=== PATIENT | male | born 1940 | race Caucasian/White ===

== ENCOUNTER → 2017-06-20 | Outpatient (CLI) | payer OTHER ==
[~2017-06-20] MED LIST: ACET-24 PO; ASPEC325 PO; ASPI81TA28 PO; FRRG PO; ULT50X PO
[2017-06-20 14:23] LABS: BASO % 0.4 %; BASO ABS # 0.02 K/uL (0-0.2); COMPLETE YES; HEMATOCRIT 43.2 % (42-52); IG% 0.2 %; LYMPH % 32.8 %; LYMPH ABS # 1.78 K/uL (1.2-3.4); MEAN CELL VOLUME 100.7 fL (80-100); MEAN CORPUSCULAR HEMOGLOBIN 32.9 pg (25-34); MEAN CORPUSCULAR HGB CONC 32.6 g/dl (32-36); MEAN PLATELET VOLUME 10.1 fL (7.4-10.4); MONO % 9.4 %; NEUT % 45.2 %; PLATELET COUNT 216 K/uL (130-400); RED BLOOD COUNT 4.29 M/uL (4.7-6.1); WHITE BLOOD COUNT 5.43 K/uL (4.8-10.8)
[2017-06-20 14:38] LABS: ALKALINE PHOSPHATASE 110 U/L (45-117); ALT/SGPT 20 U/L (12-78); AST/SGOT 17 U/L (15-37); BLOOD UREA NITROGEN 25 mg/dl (7-18); BUN/CREATININE RATIO 22.8 (10-20); CALCIUM 8.7 mg/dl (8.5-10.1); CARBON DIOXIDE 27 mmol/L (21-32); CHLORIDE 111 mmol/L (98-107); CHOLESTEROL 197 mg/dl (0-200); CHOLESTEROL/HDL RATIO 3.3; GLUCOSE 83 mg/dl (70-99); HDL CHOLESTEROL 59 mg/dl; LDL CHOLESTEROL CALCULATED 119 mg/dl; POTASSIUM 3.7 mmol/L (3.5-5.1); SODIUM 144 mmol/L (136-145); TRIGLYCERIDES 95 mg/dl (0-150); VERY LOW DENSITY LIPOPROT CALC 19 mg/dl
[2017-06-20 14:42] LABS: PROSTATE SPECIFIC ANTIGEN 0.975 ng/ml (0.000-4.000)
== END | disposition home or self-care (01) ==
LOC: C.LABSPEC 13:40
PROVIDERS: ATTEND Family Medicine
DX: Z00.00 Encounter for general adult medical examination without abnormal findings (principal); R60.0 Localized edema; Z12.5 Encounter for screening for malignant neoplasm of prostate

== ENCOUNTER 2017-07-29 05:03 | Inpatient (IN) | payer OTHER ==
[2017-07-07 09:35] VITALS: BMI 24.0
--- NOTE | 2017-07-07 10:09 | PAT Medication Instructions ---
Service Date Jul 07, 2017. Current Home Medication List Aspirin (Aspirin Ec), 81 MG PO QPM Medication Instructions For Your Scheduled Surgery - Take the following medications as scheduled the night before surgery: Aspirin (Aspirin Ec), 81 MG PO QPM (okay to continue per surgeon) If you have any questions please call us at [phone] or [phone] or [phone]
--- NOTE | 2017-07-07 11:01 | DIAGNOSTIC IMAGING REPORT ---
CHEST PREADMISSION(PA/LAT) CLINICAL HISTORY: 77 years-old Male presenting with preoperative assessment. TECHNIQUE: PA and lateral views of the chest were obtained. COMPARISON: None. FINDINGS: Cardiomediastinal silhouette normal. Lungs and pleural spaces clear. Degenerative changes of the thoracic spine. Upper abdomen normal. IMPRESSION: 1. No acute cardiopulmonary disease. Electronically signed by: Sony Ritter M.D. 07/07/2017 11:00 AM Dictated Date/Time: 07/07/2017 10:59 AM
[2017-07-07 15:13] LABS: PARTIAL THROMBOPLASTIN RATIO 1.1; PROTHROMBIN TIME (PATIENT) 11.2 SECONDS (9.0-12.0)
--- NOTE | 2017-07-23 21:58 | HISTORY & PHYSICAL EXAMINATION ---
DATE OF ADMISSION: 07/29/2017 CHIEF COMPLAINT: Right hip pain. HISTORY OF PRESENT ILLNESS: The patient is a 77-year-old gentleman from [place] who presents for treatment of his right hip. He has been an avid walker in the past but has developed increased hip pain and discomfort over the past several years. He has been less able to walk as a result. He did have an injection into his knee which did not help at all. He has been through pain management which did not seem to help either. He describes hip and buttock pain, groin pain, thigh pain. Once again, he used to walk 5 miles a day, but now cannot walk more than a mile at a time. He would like to get back to that. He would like to have his hip replaced. PAST MEDICAL HISTORY: Noncontributory. PAST SURGICAL HISTORY: 1. Appendectomy. 2. Cholecystectomy. ALLERGIES: None. CURRENT MEDICATIONS: Baby aspirin. SOCIAL HISTORY: A 77-year-old male patient from [place]. He is . His medical doctor is Dr. Sherwood. FAMILY HISTORY: Noncontributory. REVIEW OF SYSTEMS: Negative for diabetes, neurologic problems, vascular problems, bleeding disorders. Denies any chest pain. No shortness of breath. No history of DVT or PE. PHYSICAL EXAMINATION: GENERAL: Reveals a healthy pleasant elderly male. He looks younger than his stated age. HEENT: Benign. NECK: Supple. No lymphadenopathy. LUNGS: Clear to auscultation. HEART: Has a regular rate and rhythm. ABDOMEN: Soft, nontender, nondistended. EXTREMITIES: Grossly neurovascularly intact except as follows: Examination of the right hip and leg reveals patient walks with a limp. Leg lengths clinically appear pretty equal. He does have significant stiffness to his hip with pain, with any type of internal rotation. He can internally rotate to neutral. External rotation 25 degrees. Slight flexion contracture. No knee effusion. X-RAYS: X-rays of the right hip reviewed. It shows advanced right hip DJD. He has got complete loss of the superior joint space. He has got flattening of his femoral head and cystic change of both sides of the joint. ASSESSMENT: A 77-year-old very active gentleman with right hip and leg pain consistent with advanced hip arthritis. He undoubtedly has some lumbar spine disease as well, but I think his major limiting factor is his hip arthritis. PLAN: We talked about treatment options. He would like to have his hip replaced. We are going to take him to the operating room and do a right total hip replacement. The risks and benefits of this procedure were explained to patient including but not limited to DVT, PE, , infection, neurological injury, vascular injury, bleeding problem, pain, limited range of motion, stiffness, failure to relieve symptoms, incomplete relief of symptoms, need for further surgery in the future, fracture, leg length inequality, nerve palsy, dislocation, need for revision surgery, etc. The patient understands and desires to proceed. Informed consent was obtained. We talked about discharge and he is hoping to be discharged to a rehab facility for a brief rehab stay once he is medically stable in the hospital.
[~2017-07-29] VITALS: Ht 177.8 cm; Wt 76.4 kg
[2017-07-29] VITALS (24 sets, daily range): BP systolic 95–135; BP diastolic 58–76; PULSE 46–70; TEMP 36.3–37.4; O2SAT 91–100; Ht 177.8 cm; Wt 76.4 kg
[~2017-07-29 05:03] MED LIST changes: -ACET-24 PO; -ASPEC325 PO; -FRRG PO; -ULT50X PO
[2017-07-29] MEDS ORDERED: LACTATED RINGER'S 1000ML 1,000 ML IV SCH (06:00)
[2017-07-29] MEDS ORDERED: LACTATED RINGER'S 1000ML IV SCH (06:00)
[2017-07-29] MEDS ORDERED: TRANEXAMIC ACID INJ 1,000 MG in SODIUM CHLORIDE 0.9% 100ML 100 ML IV SCH (06:00)
[2017-07-29] MEDS ORDERED: SCOPOLAMINE 1.5 MG TDSY TD SCH (06:00)
[2017-07-29] MEDS ORDERED: METOCLOPRAMIDE HCL 10 MG TAB PO SCH (06:00)
[2017-07-29] MEDS ORDERED: FAMOTIDINE 20 MG TAB PO SCH (06:00)
[2017-07-29] MEDS ORDERED: ACETAMINOPHEN 500 MG TAB PO SCH (06:00)
[2017-07-29] MEDS ORDERED: LACTATED RINGER'S 1000ML 500 ML IV ONE (06:00)
[2017-07-29] MEDS ORDERED: GABAPENTIN 300 MG CAP PO SCH (06:00)
[2017-07-29] MEDS ORDERED: CEFAZOLIN 2000 MG/60 ML D5W 60 ML IV SCH (06:00)
[2017-07-29] MEDS ORDERED: BUPIVACAINE 0.5 % 5 MG/1 ML PF 10ML VIAL ONE (06:28)
[2017-07-29] MEDS ORDERED: MIDAZOLAM HCL 1 MG/ML 2ML VIAL ONE (06:38)
[2017-07-29] MEDS ORDERED: FENTANYL CITRATE INJ 50 MCG/1 ML 2 ML VIAL ONE (06:38)
[2017-07-29] MEDS ORDERED: MORPHINE SULFATE PF 2MG/2ML SYR ONE (06:39)
[2017-07-29] MEDS ORDERED: BACITRACIN 50000 UNIT VIAL ONE (06:43)
[2017-07-29] MEDS ORDERED: BUPIVACAINE/EPINEPHRINE 0.5% MPF 1:200,000 30 ML VIAL ONE (06:43)
--- NOTE | 2017-07-29 06:46 | History & Physical Bridge Note ---
H&P Re-Evaluation Bridge Note: I have examined the patient, reviewed the History & Physical and in the interval since the performance of the History & Physical I have noted the following changes of clinical significance: No changes noted
[2017-07-29] MEDS ORDERED: FENTANYL CITRATE INJ 50 MCG/1 ML 2 ML VIAL IV PRN (07:00)
[2017-07-29] MEDS ORDERED: ONDANSETRON INJ 2 MG/ML 2 ML VIAL IV PRN ×2 (07:00→07:15)
[2017-07-29] MEDS ORDERED: EpHEDrine SULFATE INJ 50 MG/ML AMP IV PRN ×2 (07:00→07:15)
[2017-07-29] MEDS ORDERED: ATROPINE SULFATE 0.1 MG/ML 5ML SYR IV PRN (07:00)
[2017-07-29] MEDS ORDERED: SODIUM CHLORIDE 0.9% 1000ML 1,000 ML IV PRN (07:02)
[2017-07-29] MEDS ORDERED: LACTATED RINGER'S 1000ML 500 ML IV PRN (07:02)
[2017-07-29] MEDS ORDERED: NALOXONE HCL INJ 1 MG in SODIUM CHLORIDE 0.9% 1000ML 1,000 ML IV PRN (07:02)
[2017-07-29] MEDS ORDERED: NALOXONE HCL INJ 0.08 MG in SYRINGE 1.8 ML IV PRN (07:02)
[2017-07-29] MEDS ORDERED: MEPERIDINE HCL 25 MG/ML CARP IV PRN (07:15)
[2017-07-29] MEDS ORDERED: NALOXONE HCL 0.4 MG/1 ML VIAL/CARP IV PRN (07:15)
[2017-07-29] MEDS ORDERED: NALBUPHINE HCL INJ 10 MG/ML AMP IV PRN (07:15)
[2017-07-29] MEDS ORDERED: NO NARCOTICS OR SEDATIVES SCH (07:15)
[2017-07-29] MEDS ORDERED: MoRPHine SULFATE 2 MG/ML CARP IV PRN (07:15)
[2017-07-29] MEDS ORDERED: MoRPHine SULFATE PF 1 MG/ML 10 ML AMP/VIAL EPI PRN (07:15)
[2017-07-29] MEDS ORDERED: PROPOFOL IV EMULSION 10 MG/ML 20 ML VIAL IV ONE (07:18)
[2017-07-29] MEDS ORDERED: ONDANSETRON INJ 2 MG/ML 2 ML VIAL ONE (07:18)
[2017-07-29] MEDS ORDERED: LIDOCAINE HCL 2% 2 ML VIAL (20MG/ML) ONE (07:18)
--- NOTE | 2017-07-29 08:38 | [facility] Post Operative Brief Note ---
Immediate Operative Summary Operative Date Jul 29, 2017. Pre-Operative Diagnosis Right Hip, Degenerative Joint Disease Post-Operative Diagnosis Same as preoperative Procedure(s) Performed Right Total Hip Arthroplasty, Uncemented Surgeon Dr. Barrett Orellana Motion Picture Narrator Surgeon(s) Abdon Madrigal PA-C Estimated Blood Loss 300ml Findings Right Hip DJD Fluids (cc crystalloids) 1200 cc Specimens A.) Right Femoral Head Drains NOne Anesthesia Spinal Complication(s) None Disposition Recovery Room / PACU
[2017-07-29] MEDS ORDERED: SILVER SULFADIAZINE 1% CR 50 GM JAR EXT PRN (08:45)
[2017-07-29] MEDS ORDERED: BISACODYL 10 MG SUPP PR PRN (08:45)
[2017-07-29] MEDS ORDERED: ALUMINUM/MAGNESIUM/SIMETH (MAALOX MAX) 30 ML UDC PO PRN (08:45)
[2017-07-29] MEDS ORDERED: MAGNESIUM HYDROXIDE SUSP 30 ML UDC PO PRN (08:45)
[2017-07-29] MEDS ORDERED: TAMSULOSIN HCL 0.4 MG CAP PO PRN (08:45)
--- NOTE | 2017-07-29 09:10 | DIAGNOSTIC IMAGING REPORT ---
R PELVIS/UNILATERAL HIP 1 VIEW CLINICAL HISTORY: 77 years-old Male presenting with postoperative hip replacement. TECHNIQUE: Single frontal view pelvis and crosstable lateral view of the right hip were obtained. COMPARISON: 05/14/2017. FINDINGS: There has been interval total right hip arthroplasty. Expected soft tissue and intra-articular emphysema. Overlying skin lily. No malalignment. No acute fracture. No hardware complication. Calcification in the soft tissues along the medial thighs, possibly within the musculature and unchanged from prior. IMPRESSION: Expected postoperative appearance status post right total hip arthroplasty. Electronically signed by: Sony Ritter M.D. 07/29/2017 9:08 AM Dictated Date/Time: 07/29/2017 9:07 AM
--- NOTE | 2017-07-29 09:10 | OPERATIVE REPORT ---
DATE OF OPERATION: 07/29/2017 SURGEON: Barrett Orellana MD. PROCESS LEAD: SABINO Sheth. PREOPERATIVE DIAGNOSIS: Right hip degenerative joint disease. POSTOPERATIVE DIAGNOSIS: Same. PROCEDURE PERFORMED: Right uncemented total hip arthroplasty. COMPLICATION: None. ESTIMATED BLOOD LOSS: 300 mL FLUID REPLACEMENT: 1200 mL crystalloid fluid replacement. ANESTHESIA: Spinal. DRAINS: None. SPECIMEN: Right femoral head sent for pathology. OPERATIVE INDICATIONS: The patient is a 77-year-old very active gentleman who has had a fairly long history of right leg pain and discomfort. He has been through extensive conservative care trying to manage knee problems as well as back problems. This has been all unsuccessful. X-rays show advanced hip arthritis. He failed conservative treatment and would like to proceed with operative intervention. OPERATIVE FINDINGS: Operative findings revealed advanced right hip DJD. He had extensive grade 4 changes of the femoral head and acetabulum. He had large osteophytes of the anterior aspect of the acetabulum as well as around the femoral neck. OPERATIVE IMPLANTS: Operative implants consisted of: 1. Biomet G7 size 58 mm acetabular shell. 2. A 6.5 cancellous acetabular screws, 1 at 35 mm length and 1 at 30 mm length. 3. An apex hole eliminator. 4. A Biomet highly cross-linked polyethylene liner with a 58 mm outer diameter, 36 mm inner diameter, with a rhoades placed inferior and posterior. 5. A DePuy size 16.5 large stature standard offset femoral stem. 6. A +5/36 mm metal articular ball. OPERATIVE PROCEDURE: The patient taken to the operating room, identified and placed on the operating table in supine position. All contact areas were appropriately padded. IV antibiotics provided by anesthesia team. A spinal anesthetic had been implemented in the holding area. Kruger catheter was placed in sterile fashion. The patient then placed in left lateral decubitus position. An axillary roll was placed. Stulberg hip positioner was used for positioning. The right hip and leg were then prepped and draped in usual sterile fashion. A posterolateral approach to the right hip was then performed through a curvilinear incision centered over the greater trochanter area. Sharp dissection was carried through the subcutaneous tissues down to the level of the IT band and gluteal fascia. The IT band and gluteal fascia were then incised longitudinally in line with skin incision. The underlying greater trochanteric bursa was excised. The piriformis and external rotators were then taken off the posterior aspect of the hip. Great care was taken throughout the procedure to protect the sciatic nerve at all times. Posterior capsulotomy was then performed, leaving a large flap for later repair. Hip was internally rotated and dislocated. Femoral neck osteotomy cut was made with the final cut 12 mm above the lesser trochanter. Femoral head was removed and sent for pathology. The femur was retracted anteriorly. Attention was then drawn to the acetabulum. The acetabular labrum was excised. The pulvinar fat was excised. Sequential reaming of the acetabulum was then performed beginning with size 51 and progressing up to a 57. A 58 mm Biomet G7 acetabular shell was then placed in about 40 degrees of lateral opening and 20 degrees of anteversion. It was fixed with two 6.5 cancellous acetabular screws. A trial liner was placed. Some anterior osteophytes removed. Attention then drawn to the femur. The proximal femur was entered with a cookie cutter, followed by a canal finder and lateralizing reamer. Sequential reaming of the femur was then performed beginning with a size 10 and progressing up to a 16. We started to get pretty good chatter at 16. I then broached beginning with a size 12 small and progressing up to 16.5 large. We got good metaphyseal fit. Calcar reamer was used to smoothen off the calcar. Hip was then trialed. The +5/36 mm articular ball provided full stability in full extension, external rotation, flexion to 90 degrees and internal rotation to 60 degrees. I did elect to place a rhoades on the liner very inferior and posterior to maximize his stability in flexion. Soft tissue tension seemed appropriate. We elected to use these implants. All trial implants were removed. An apex hole eliminator was placed. A highly cross-linked polyethylene liner with a rhoades placed inferior and posterior was placed. A DePuy 16.5 large stature standard offset femoral stem was then impacted in position. We got good fit. A +5/36 mm metal articular ball was placed. Hip was located and once again found to be stable. Attention was then drawn toward closing. The wound was irrigated with copious amounts of pulsatile lavage solution. I did inject locally with 60 mL of 0.5% Marcaine with epinephrine. Posterior capsule and external rotators were then repaired through drill holes in the posterior trochanter with #2 Ti-Cron suture. The IT band and gluteal fascia were then closed with #1 PDS suture in running fashion. The subcutaneous tissues were then closed in 2 layers with deep layer with #1 Vicryl suture and subcutaneous tissues with 2-0 Dexon suture in a buried interrupted fashion. Skin was closed with skin lily. Leg was then cleaned and dried, and a sterile dressing of Xeroform, 4 x 4's, ABD pad and foam tape was applied. The patient then transferred to the recovery room in stable condition. The patient tolerated the procedure well with no complications. All needle and sponge counts were correct at the end of the operation. I attest to the content of the Intraoperative Record and any orders documented therein. Any exception s are noted below.
--- NOTE | 2017-07-29 09:23 | Anesthesiology Progress Note ---
Anesthesia Post Op Note Date & Time Jul 29, 2017 at 09:23 Vital Signs Pain Intensity: 0 Vital Signs Past 12 Hours Date Time Temp Pulse Resp B/P (MAP) Pulse Ox O2 Delivery O2 Flow Rate FiO2 07/29/17 09:15 36.2 48 17 122/65 100 Nasal Cannula 2 07/29/17 09:05 48 12 117/63 100 Nasal Cannula 2 07/29/17 08:55 53 15 128/67 100 Nasal Cannula 2 07/29/17 08:45 55 15 122/66 100 Nasal Cannula 2 07/29/17 08:37 36.0 66 15 109/66 100 Nasal Cannula 2 07/29/17 05:45 36.4 48 18 122/73 98 Room Air Notes Mental Status: alert / awake / arousable, participated in evaluation Pt Amnestic to Procedure: Yes Nausea / Vomiting: adequately controlled Pain: adequately controlled Airway Patency, RR, SpO2: stable & adequate BP & HR: stable & adequate Hydration State: stable & adequate Neuraxial Anesthesia: was administered, sensory block is resolving Anesthetic Complications: no major complications apparent
[2017-07-29] MEDS: DiphenhydrAMINE HCL 50 MG/ML VIAL IV PRN ×2 (10:24→18:27)
[2017-07-29] MEDS: DOCUSATE SODIUM 100 MG CAP PO SCH ×2 (10:26→20:31)
[2017-07-29] MEDS: D5W AND 1/2NSS + 20MEQ KCL 1,000 ML IV SCH ×2 (10:26→20:26)
[2017-07-29] MEDS: PANTOprazole SOD 40 MG TAB PO SCH (10:27)
[2017-07-29] MEDS: MULTIVITAMIN TAB PO SCH (10:27)
[2017-07-29] MEDS: FERROUS GLUCONATE 324 MG TAB PO SCH ×2 (12:15→18:21)
[2017-07-29] MEDS: ACETAMINOPHEN 500 MG TAB PO SCH ×2 (14:08→21:37)
[2017-07-29] MEDS ORDERED: TRANEXAMIC ACID INJ 1,000 MG in SODIUM CHLORIDE 0.9% 100ML 100 ML IV ONE (14:30)
--- NOTE | 2017-07-29 15:38 | PROGRESS NOTE ---
DATE: 07/29/2017 DATE: 07/29/2017 SUBJECTIVE: A 77-year-old gentleman postop from a right total hip replacement. He is doing well. Not having any pain yet. No chest pain or shortness of breath. Not feeling dizzy or lightheaded. He has been a bit itchy. OBJECTIVE: VITAL SIGNS: Temperature 36.4. Vital signs stable. PHYSICAL EXAMINATION: GENERAL: Reveals a pleasant elderly male. He is sitting up in bed and talking to his family. Looks comfortable. LUNGS: Clear to auscultation. HEART: Regular rate and rhythm. ABDOMEN: Soft, nontender, nondistended. EXTREMITY EXAMINATION: Grossly neurovascularly intact except as follows: Examination of the right hip and leg reveals the dressing to be clean, dry and intact. Leg lengths were equal. Hip is located. He is neurologically intact. He can dorsiflex and plantarflex his foot appropriately. X-RAYS: X-rays of the right hip from recovery room were reviewed. It shows a right uncemented total hip arthroplasty. Components looked to be in good position. No signs of problems. ASSESSMENT: A 77-year-old gentleman postop from a right total hip replacement, doing pretty well. Pain is controlled. Hip is located. He is neurologically intact. PLAN: 1. DVT prophylaxis including thigh-high TEDs, SCDs, and aspirin twice a day. 2. PT/OT. Weight bear as tolerated. Right total hip protocol. 3. Pain control. Doing well with current pain regimen. Really not having any pain. 4. IV antibiotics x24 hours. 5. Disposition. He is hoping to be discharged to [facility] for a rehab stay once medically stable and recovered.
[2017-07-29] MEDS: CHECK SCOPOLAMINE PATCH PLACEMENT SCH ×2 (15:40→23:47)
[2017-07-29] MEDS: CEFAZOLIN IV 1,000 MG in DEXTROSE 5% 50ML 50 ML IV SCH ×2 (15:40→23:50)
[2017-07-29] MEDS: ASPIRIN 325 MG ECTAB PO SCH (20:31)
[2017-07-29] MEDS: SENNA 8.6 MG TAB PO SCH (20:31)
[2017-07-30 00:30] VITALS: PULSE 76; O2SAT 94; O2SAT 96
[2017-07-30] MEDS ORDERED: DC INTRASPINAL MORPHINE ONE (01:00)
[2017-07-30] MEDS ORDERED: HYDROmorphone INJ 0.5 MG/0.5 ML SYR IV PRN (01:01)
[2017-07-30] MEDS ORDERED: METOCLOPRAMIDE HCL INJ 5 MG/ML 2 ML VIAL IV PRN (01:01)
[2017-07-30] MEDS ORDERED: TRAMADOL HCL 50 MG TAB PO PRN (01:01)
[2017-07-30] MEDS ORDERED: ONDANSETRON INJ 2 MG/ML 2 ML VIAL IV PRN (01:01)
[2017-07-30] MEDS ORDERED: ZOLPIDEM TARTRATE 5 MG TAB PO PRN (01:01)
[2017-07-30 01:04] VITALS: O2SAT 95
[2017-07-30] MEDS: KETOROLAC TROMETHAMINE 15 MG/ML VIAL IV. SCH ×4 (01:42→20:00)
[2017-07-30 03:01] VITALS: BP 94/56; PULSE 67; TEMP 37.1; O2SAT 93
[2017-07-30] MEDS: D5W AND 1/2NSS + 20MEQ KCL 1,000 ML IV SCH (05:36)
[2017-07-30] MEDS: ACETAMINOPHEN 500 MG TAB PO SCH ×3 (05:37→21:47)
[2017-07-30 06:18] LABS: BASO % 0.3 %; BASO ABS # 0.02 K/uL (0-0.2); COMPLETE YES; EOS % 0.3 %; HEMATOCRIT 28.5 % (42-52); IG% 0.3 %; LYMPH ABS # 1.34 K/uL (1.2-3.4); MEAN CELL VOLUME 98.6 fL (80-100); MEAN CORPUSCULAR HEMOGLOBIN 33.2 pg (25-34); MEAN CORPUSCULAR HGB CONC 33.7 g/dl (32-36); MEAN PLATELET VOLUME 9.5 fL (7.4-10.4); MONO % 8.3 %; NEUT % 69.8 %; PLATELET COUNT 164 K/uL (130-400); RED BLOOD COUNT 2.89 M/uL (4.7-6.1); WHITE BLOOD COUNT 6.38 K/uL (4.8-10.8)
[2017-07-30 06:52] VITALS: BP 91/51; PULSE 59; TEMP 36.9; O2SAT 93
[2017-07-30 06:56] LABS: BUN/CREATININE RATIO 17.2 (10-20); CALCIUM 7.9 mg/dl (8.5-10.1); CREATININE 1.1 mg/dl (0.60-1.40); POTASSIUM 3.9 mmol/L (3.5-5.1)
[2017-07-30 07:02] VITALS: BP 93/54
--- NOTE | 2017-07-30 07:43 | Anesthesiology Progress Note ---
Anesthesia Post Op Note Date & Time Jul 30, 2017 at 07:43 Vital Signs Pain Intensity: 0.0 Vital Signs Past 12 Hours Date Time Temp Pulse Resp B/P (MAP) Pulse Ox O2 Delivery O2 Flow Rate FiO2 07/30/17 07:02 93/54 (67) 07/30/17 06:52 36.9 59 16 91/51 (64) 93 Room Air 07/30/17 03:01 37.1 67 16 94/56 (69) 93 Room Air 07/30/17 01:04 18 95 07/30/17 00:30 76 96 Nasal Cannula 2.0 07/30/17 00:30 18 94 07/29/17 23:40 16 94 07/29/17 23:40 94 Nasal Cannula 2.0 07/29/17 22:46 36.8 70 18 98/58 (71) 99 Nasal Cannula 2.0 07/29/17 22:30 20 95 07/29/17 21:30 18 95 07/29/17 20:48 16 93 Room Air 07/29/17 20:30 20 93 Notes Mental Status: alert / awake / arousable, participated in evaluation Pt Amnestic to Procedure: Yes Nausea / Vomiting: adequately controlled Pain: adequately controlled Airway Patency, RR, SpO2: stable & adequate BP & HR: stable & adequate Hydration State: stable & adequate Neuraxial Anesthesia: was administered, sensory block resolved Anesthetic Complications: no major complications apparent
[2017-07-30] MEDS: DOCUSATE SODIUM 100 MG CAP PO SCH ×2 (08:26→21:47)
[2017-07-30] MEDS: PANTOprazole SOD 40 MG TAB PO SCH (08:26)
[2017-07-30] MEDS: ASPIRIN 325 MG ECTAB PO SCH ×2 (08:26→21:46)
[2017-07-30] MEDS: CHECK SCOPOLAMINE PATCH PLACEMENT SCH ×2 (08:26→16:00)
[2017-07-30] MEDS: MULTIVITAMIN TAB PO SCH (08:26)
[2017-07-30] MEDS: FERROUS GLUCONATE 324 MG TAB PO SCH ×4 (09:23→18:30)
--- NOTE | 2017-07-30 12:27 | PROGRESS NOTE ---
DATE: 07/30/2017 SUBJECTIVE: 77-year-old gentleman postop day 1 from right hip replacement. Pretty confused this morning. Denies any real significant pain. No chest pain or shortness of breath. OBJECTIVE: VITAL SIGNS: Temperature 36.9. Vital signs stable. PHYSICAL EXAMINATION: GENERAL: Reveals a pleasant elderly male. He is pleasantly confused. EXTREMITIES: Examination of the right hip and leg reveals the dressing to be clean, dry and intact. Hip is located. He is neurologically intact. Minimal swelling. LABORATORY DATA: Hemoglobin 9.6. Hematocrit 28.5. Electrolytes are stable. ASSESSMENT: 77-year-old gentleman postop day 1 from right total hip replacement. He is pretty confused today which looks to be just . He is medically stable. He is anemic without symptoms. His hip is located. He is neurologically intact. PLAN: 1. DVT prophylaxis including thigh-high TEDs, SCDs, and aspirin twice a day. 2. PT/OT. Weightbearing as tolerated. Right total hip protocol. 3. Pain control. We are going to limit narcotics. He can take Tylenol and Toradol at this point. No narcotics at all until his confusion resolves. 4. Disposition: He is hoping to be discharged to [place] for a brief rehab stay once medically stable.
[2017-07-30 16:00] VITALS: BP 100/63; PULSE 65; TEMP 36.6; O2SAT 95
[2017-07-30] MEDS ORDERED: ACET-24 PO (18:07)
[2017-07-30] MEDS ORDERED: FRRG PO (18:07)
[2017-07-30] MEDS ORDERED: ULT50X PO (18:07)
[2017-07-30] MEDS ORDERED: ASPEC325 PO (18:07)
--- NOTE | 2017-07-30 18:12 | Discharge Instructions ---
Discharge Instructions Date of Service Jul 30, 2017. Admission Reason for Admission: Right Hip Degenerative Joint Disease Discharge Discharge Diagnosis / Problem: Right Hip Replacement Discharge Goals Goal(s): Decrease discomfort, Improve function, Increase independence, Improve disease control, Therapeutic intervention Activity Recommendations Activity Level: Assistance Required Therapies: Physical Therapy (Total Hip Precautions), Occupational Therapy ( Total Hip Preautions) Weightbearing Status: Right weightbearing . Additional Information Patient informed of condition: Yes Advance Directives: Yes DNR: No Level of Care: Skilled Communicable Disease: No Prognosis: Improving Instructions / Follow-Up Instructions / Follow-Up ACTIVITY RECOMMENDATIONS: Physical Therapy: * Aggressive physical therapy is not usually needed. You will learn to take care of yourself safely and walk. * Follow the "Hip Precautions Instructions." * In some cases, the addiction social worker at the hospital will arrange to have a therapist come to your house for the first couple of weeks to help you learn these skills. * You need to practice on your own or with the help of a family member as needed. * When you learn these skills, most of the therapy can be done on your own. Home Exercise: * You were shown a series of exercises in the hospital. Do these exercises three to four times each day including the exercises you were shown in physical therapy. Walking: * Get up and walk several times each day. For the first four weeks, try not to stand or walk for more than one hour at a time. If you do stand or walk for more than one hour, you will not hurt anything, but your leg will likely swell. * As you feel comfortable, you may change from the walker or crutches to a cane and then to independent walking. MEDICATIONS: New Medicine: * You will likely be taking one or more of these medicines: 1. Tramadol - Take, as directed, when you need it, every four to six hours to control your pain. 2. Iron Sulfate - Take two times each day for the month after surgery to help you replace the blood lost during surgery. 3. Aspirin - Thins your blood to lessen the chance of forming a blood clot. * The most common side effects of pain medicine and iron are nausea and constipation. If nausea or constipation is too much of a problem or if you have any questions about your new medicines or doses, call [facility] at . We will try to help you manage these issues. VERY IMPORTANT TO READ AND REVIEW" Pain: * The immediate post-operative period after hip replacement surgery is often quite painful. * You are given a prescription for pain medicine. You should take it, as directed, when you need it, especially before physical therapy and before going to bed. Pain that interferes with sleep is very common and can last several months. * You will likely need pain medicine for the first two to four weeks. It will not stop all of the pain. The pain will lessen and as you feel better, you may change to milder pain medicine such as Tylenol. * The most common side effects of pain medicine are nausea and constipation, so don't take more than you need. SPECIAL CARE INSTRUCTIONS: TEDs/Elastic Stockings: * The white elastic stockings help limit swelling and prevent blood clots from forming in your legs. The more you wear them, the more they work. * Wear them for six weeks. Prevention of Infection: * Take antibiotics one hour before any dental cleaning, dental work, urological procedure, gastrointestinal procedure or any invasive surgery in order to prevent your new joint from getting infected. * You may get the antibiotics from the doctor performing the procedure or you may call our office at before and we will call in a prescription to the pharmacy of your choice. Things to Watch For: * Drainage from the incision site that occurs more than one week after your surgery. * Severely increased leg pain or swelling. * Increased redness at the incision site. * Fever above 102 degrees Fahrenheit. * Unusual chest pain or shortness of breath. * Unusual pain or burning with urination. Call [facility] at with any of the above problems or if you have any questions about your medicines or recovery. FOLLOW UP VISIT: Make an appointment to see your doctor for approximately two weeks after surgery for a progress check and staple removal by calling the office at . Current Hospital Diet Patient's current hospital diet: Regular Diet Discharge Diet Recommended Diet: Regular Diet Procedures Procedures Performed: Right Total Hip Arthroplasty, Uncemented Pending Studies Studies pending at discharge: no Laboratory Results Lipid Panel Test 06/20/17 08:40 Range/Units Triglycerides Level 95 0-150 mg/dl Cholesterol Level 197 0-200 mg/dl HDL Cholesterol 59 mg/dl Cholesterol/HDL Ratio 3.3 LDL Cholesterol, Calculated 119 mg/dl Medical Emergencies . Who to Call and When: Medical Emergencies: If at any time you feel your situation is an emergency, please call 911 immediately. . Non-Emergent Contact Non-Emergency issues call your: Surgeon . . "Provider Documentation" section prepared by Barrett Orellana. . Core Measure Problem Core Measures: None
[2017-07-30] MEDS: SENNA 8.6 MG TAB PO SCH (21:46)
[2017-07-31] MEDS: CHECK SCOPOLAMINE PATCH PLACEMENT SCH ×3 (00:19→16:00)
[2017-07-31] MEDS: KETOROLAC TROMETHAMINE 15 MG/ML VIAL IV. SCH ×4 (02:56→20:00)
[2017-07-31] MEDS: ACETAMINOPHEN 500 MG TAB PO SCH ×2 (06:33→12:03)
--- NOTE | 2017-07-31 08:12 | PROGRESS NOTE ---
DATE: 07/31/2017 DATE: 07/31/2017 SUBJECTIVE: A 77-year-old gentleman postop day 2 from right total hip replacement. Very confused yesterday. Seems better this morning. He is awake, alert and knows he is in the hospital and knew who I was this morning, which is much better than yesterday. Denies any significant pain. No chest pain or shortness of breath. OBJECTIVE: VITAL SIGNS: Temperature is 36.6. Vital signs stable. PHYSICAL EXAMINATION: GENERAL: This is a pleasant 77-year-old male. He is much more awake and alert this morning, but still just slightly confused. EXTREMITIES: Examination of the right hip and leg reveals the dressing to be in place. His leg lengths are clinically equal. He can dorsiflex and plantarflex his foot appropriately. He is neurologically intact. ASSESSMENT: A 77-year-old gentleman postop day 2 from right total hip replacement, doing better this morning. Very confused yesterday. Still slightly confused but improved. PLAN: 1. DVT prophylaxis including thigh-high TEDs, SCDs, and aspirin twice a day. 2. PT/OT. Weightbearing as tolerated. Right total hip protocol. 3. Pain control. We were going to just limit to Tylenol and Toradol for pain control. No narcotics at all to avoid confusion. 4. Confusion. This is almost certainly . He has got no other focal signs of issues or neurological findings. He is better than he was yesterday and we will hold narcotics. 5. Disposition. We are waiting for approval so he is going to go to a shelter facility, [facility] which is closer to his home. He needs a 3 night day. Hopefully transfer tomorrow.
[2017-07-31 08:28] VITALS: BP 196/90; PULSE 88; TEMP 37.2; O2SAT 96
[2017-07-31] MEDS: ASPIRIN 325 MG ECTAB PO SCH ×3 (11:29→20:45)
[2017-07-31] MEDS: DOCUSATE SODIUM 100 MG CAP PO SCH ×2 (11:29→20:45)
[2017-07-31] MEDS: FERROUS GLUCONATE 324 MG TAB PO SCH ×3 (11:29→18:22)
[2017-07-31] MEDS: PANTOprazole SOD 40 MG TAB PO SCH (11:30)
[2017-07-31] MEDS: MULTIVITAMIN TAB PO SCH (11:30)
--- NOTE | 2017-07-31 14:20 | Clinical Documentation Query ---
CLINICAL DOCUMENTATION QUERY Dr. ROMERO, In your clinical opinion is this patient being managed for: ( x ) Metabolic encephalopathy ( ) Not Agree ( ) Other explanation of clinical findings (Please Explain) ( ) Unable to determine (Please Define) ( ) Need to Discuss The medical record reflects the following clinical findings, treatment, and risk factors. Clinical Indicators: 77 yo male presenting for surgical treatment of R hip arthritis. Pt not noted to have hx of dementia. Documentation reflects pt developed confusion, throughout the day, beginning on 07/30 to the point of having a code regalado called. Treatment:1:1 sitter, UA and C/S pending Risk Factors:anesthetic agents, age Please clarify and document your clinical opinion in the progress notes and discharge summary. Terms such as "probable", "suspected", "likely", "questionable", "possible", or "still to be ruled out" are acceptable. IF IN AGREEMENT, YOU MUST DOCUMENT ABOVE DIAGNOSTIC STATEMENT IN DAILY PROGRESS NOTES AND DISCHARGE SUMMARY. This document is not part of the patient's record. Thank You, Hannah Cary RN [phone]
[2017-07-31 14:28] LABS: URINE APPEARANCE CLEAR (CLEAR); URINE BILIRUBIN NEG (NEG); URINE COLOR YELLOW; URINE EPITHELIAL CELL AUTO 0-5 /lpf (0-5); URINE NITRITE NEG (NEG); UROBILINOGEN NEG (NEG)
[2017-07-31 14:31] LABS: MANUAL MICROSCOPIC REQUIRED? NO; REVIEW REQ? NO
[2017-07-31 14:49] VITALS: BP 104/57; PULSE 73; TEMP 37.5; O2SAT 95
[2017-07-31] MEDS: SENNA 8.6 MG TAB PO SCH (20:45)
[2017-08-01] MEDS: CHECK SCOPOLAMINE PATCH PLACEMENT SCH (00:05)
[2017-08-01 01:00] VITALS: BP 115/70; PULSE 72; TEMP 36.7; O2SAT 94
[2017-08-01] MEDS: ACETAMINOPHEN 500 MG TAB PO SCH ×2 (05:35→13:43)
[2017-08-01 07:59] VITALS: BP 109/64; PULSE 70; TEMP 36.8; O2SAT 97
[2017-08-01] MEDS: PANTOprazole SOD 40 MG TAB PO SCH (08:58)
[2017-08-01] MEDS: FERROUS GLUCONATE 324 MG TAB PO SCH ×2 (08:58→13:43)
[2017-08-01] MEDS: DOCUSATE SODIUM 100 MG CAP PO SCH (08:58)
[2017-08-01] MEDS: ASPIRIN 325 MG ECTAB PO SCH (08:58)
[2017-08-01] MEDS: MULTIVITAMIN TAB PO SCH (08:58)
--- NOTE | 2017-08-01 13:59 | PROGRESS NOTE ---
DATE: 08/01/2017 DATE: 08/01/2017 SUBJECTIVE: A 77-year-old gentleman postop day 3 from a right total hip replacement. He has been pretty confused the past few days but much improved today. Each day has been a little bit better since postop day #1. Denies any significant pain. No chest pain or shortness of breath. He is anxious to get out of the hospital. OBJECTIVE: VITAL SIGNS: Temperature 36.8. Vital signs stable. GENERAL: Reveals a pleasant elderly female. He is sitting up at his bedside chair and looks completely comfortable. He is completely awake, alert and oriented and appropriate. EXTREMITIES: Examination of the right hip reveals the incision to be clean, dry and intact. Thigh is soft and supple. Hip is located. He is neurologically intact. LABORATORY DATA: Urinalysis was negative for any signs of infection or UTI. ASSESSMENT: A 77-year-old gentleman postop day 3 from a right total hip replacement complicated by a postoperative confusion/delirium. He is much improved today. Likely related to anesthesia, foreign environment, and medicines. PLAN: 1. DVT prophylaxis including thigh high TEDs, SCDs, and aspirin twice a day. 2. PT, OT. Weight bear as tolerated. Right total hip protocol. 3. Pain control. Doing pretty well with current pain regimen. We will try and limit all narcotics to avoid confusion and stick to Tylenol and Toradol as needed. 4. Disposition. We are hoping to get him to a assisted facility. We are pending acceptance/approval.
--- NOTE | 2017-08-01 15:02 | Discharge Instructions ---
Discharge Instructions Date of Service Aug 01, 2017. Admission Reason for Admission: Right Hip Degenerative Joint Disease Discharge Discharge Diagnosis / Problem: Right Hip Replacement Discharge Goals Goal(s): Decrease discomfort, Improve function, Increase independence, Improve disease control, Therapeutic intervention Activity Recommendations Activity Limitations: per Instructions/Follow-up section Weightbearing Status: Right weightbearing . Instructions / Follow-Up Instructions / Follow-Up ACTIVITY RECOMMENDATIONS: Physical Therapy: * Aggressive physical therapy is not usually needed. You will learn to take care of yourself safely and walk. * Follow the "Hip Precautions Instructions." * In some cases, the director social service at the hospital will arrange to have a therapist come to your house for the first couple of weeks to help you learn these skills. * You need to practice on your own or with the help of a family member as needed. * When you learn these skills, most of the therapy can be done on your own. Home Exercise: * You were shown a series of exercises in the hospital. Do these exercises three to four times each day including the exercises you were shown in physical therapy. Walking: * Get up and walk several times each day. For the first four weeks, try not to stand or walk for more than one hour at a time. If you do stand or walk for more than one hour, you will not hurt anything, but your leg will likely swell. * As you feel comfortable, you may change from the walker or crutches to a cane and then to independent walking. MEDICATIONS: New Medicine: * You will likely be taking one or more of these medicines: 1. Tramadol - Take, as directed, when you need it, every four to six hours to control your pain. 2. Iron Sulfate - Take three times each day for the month after surgery to help you replace the blood lost during surgery. 3. Aspirin - Thins your blood to lessen the chance of forming a blood clot. * The most common side effects of pain medicine and iron are nausea and constipation. If nausea or constipation is too much of a problem or if you have any questions about your new medicines or doses, call [facility] at [phone]. We will try to help you manage these issues. VERY IMPORTANT TO READ AND REVIEW" Pain: * The immediate post-operative period after hip replacement surgery is often quite painful. * You are given a prescription for pain medicine. You should take it, as directed, when you need it, especially before physical therapy and before going to bed. Pain that interferes with sleep is very common and can last several months. * You will likely need pain medicine for the first two to four weeks. It will not stop all of the pain. The pain will lessen and as you feel better, you may change to milder pain medicine such as Tylenol. * The most common side effects of pain medicine are nausea and constipation, so don't take more than you need. SPECIAL CARE INSTRUCTIONS: TEDs/Elastic Stockings: * The white elastic stockings help limit swelling and prevent blood clots from forming in your legs. The more you wear them, the more they work. * Wear them for six weeks. Prevention of Infection: * Take antibiotics one hour before any dental cleaning, dental work, urological procedure, gastrointestinal procedure or any invasive surgery in order to prevent your new joint from getting infected. * You may get the antibiotics from the doctor performing the procedure or you may call our office at before and we will call in a prescription to the pharmacy of your choice. Things to Watch For: * Drainage from the incision site that occurs more than one week after your surgery. * Severely increased leg pain or swelling. * Increased redness at the incision site. * Fever above 102 degrees Fahrenheit. * Unusual chest pain or shortness of breath. * Unusual pain or burning with urination. Call [facility] at with any of the above problems or if you have any questions about your medicines or recovery. FOLLOW UP VISIT: Make an appointment to see your doctor for approximately two weeks after surgery for a progress check and staple removal by calling the office at . Current Hospital Diet Patient's current hospital diet: Regular Diet Discharge Diet Recommended Diet: Regular Diet Procedures Procedures Performed: Right Total Hip Arthroplasty, Uncemented Pending Studies Studies pending at discharge: no Laboratory Results Lipid Panel Test 06/20/17 08:40 Range/Units Triglycerides Level 95 0-150 mg/dl Cholesterol Level 197 0-200 mg/dl HDL Cholesterol 59 mg/dl Cholesterol/HDL Ratio 3.3 LDL Cholesterol, Calculated 119 mg/dl Medical Emergencies . Who to Call and When: Medical Emergencies: If at any time you feel your situation is an emergency, please call [phone] immediately. . Non-Emergent Contact Non-Emergency issues call your: Surgeon . "Provider Documentation" section prepared by Barrett Orellana. . VTE Core Measure Inpt VTE Proph given/why not?: Other Anticoagulation, T.E.DKae Carroll, SCD's
[2017-08-01 15:18] VITALS: BP 123/71; PULSE 62; TEMP 36.6; O2SAT 98
[2017-08-01 15:59] VITALS: BP 123/71; PULSE 62; TEMP 36.6; O2SAT 98
--- NOTE | 2017-08-04 15:06 | DISCHARGE SUMMARY ---
ADMITTING PHYSICIAN AND SURGEON: Dr. Orellana. ADMITTING DIAGNOSIS: Right hip degenerative joint disease. SURGERY PERFORMED: Right total hip arthroplasty. SECONDARY DIAGNOSES: Noncontributory. CONSULTS: None obtained. HISTORY AND PHYSICAL EXAMINATION: Well documented in patient's chart. HOSPITAL COURSE: The patient was admitted on 07/29/2017 underwent total hip arthroplasty, tolerated the procedure well. There were no complications. He was transferred to the PACU postoperatively and later to the orthopedic floor for further care. He was given Ancef for antibiotic prophylaxis, SELIN stockings, SCDs and aspirin for DVT prophylaxis. Hemoglobin, hematocrit and vital signs were monitored during his hospital stay and remained stable. He developed some postoperative anemia with a hemoglobin of 9.6, but did not require any blood transfusions. He had some confusion postoperatively which did improve by postoperative day #3. There were no complications during his hospital stay. By postoperative day 3, he was tolerating a general diet, pain was controlled with oral pain medicine. His narcotics were limited due to the confusion. He was participating in physical therapy and had no signs or symptoms of deep vein thrombosis. On postop day 3, he was discharged home and set up with home health services, given printed discharge instructions including new prescriptions for extra strength Tylenol, aspirin 325 mg b.i.d., iron supplement and tramadol. He was instructed to stop his home dose of aspirin which was changed. Continue physical therapy, weightbearing as tolerated, SELIN stockings, total hip precautions. Follow up in 10-12 days or sooner if there are any problems or concerns.
== END 2017-08-01 16:40 | disposition home health service (06) | DRG 470 ==
LOC: C.ACU 05:03 → C.3E 06:35 → ENRESERV 09:15 → C.3E 21:02
PROVIDERS: ADMIT Orthopaedic Surgery Sports Medicine; ATTEND Orthopaedic Surgery Sports Medicine
PROC: 0SR90JA Replacement of Right Hip Joint with Synthetic Substitute, Uncemented, Open Approach (ICD-10-PCS; principal; 2017-07-29 07:00)
DX: M16.11 Unilateral primary osteoarthritis, right hip (principal); Z90.49 Acquired absence of other specified parts of digestive tract

== ENCOUNTER → 2018-06-22 | Outpatient (CLI) | payer OTHER ==
[~2018-06-22] MED LIST changes: +ACET-24 PO; +ASPEC325 PO; -ASPI81TA28 PO; +FRRG PO; +ULT50X PO
[2018-06-22 13:53] LABS: BASO % 0.8 %; BASO ABS # 0.04 K/uL (0-0.2); EOS % 4.5 %; EOS ABS # 0.22 K/uL (0-0.5); HEMATOCRIT 43.1 % (42-52); HEMOGLOBIN 14.2 g/dL (14.0-18.0); IG# 0.01 K/uL (0.00-0.02); LYMPH % 36.5 %; LYMPH ABS # 1.79 K/uL (1.2-3.4); MEAN CELL VOLUME 100.2 fL (80-100); MEAN CORPUSCULAR HGB CONC 32.9 g/dl (32-36); MEAN PLATELET VOLUME 10.1 fL (7.4-10.4); MONO % 8.8 %; MONO ABS # 0.43 K/uL (0.11-0.59); NEUT % 49.2 %; NEUT ABS # 2.42 K/uL (1.4-6.5); PLATELET COUNT 210 K/uL (130-400); RED CELL DISTRIBUTION WIDTH CV 12.9 % (11.5-14.5); RED CELL DISTRIBUTION WIDTH SD 46.9 fL (36.4-46.3); WHITE BLOOD COUNT 4.91 K/uL (4.8-10.8)
[2018-06-22 14:11] LABS: ALBUMIN 3.5 gm/dl (3.4-5.0); ALKALINE PHOSPHATASE 102 U/L (45-117); ALT/SGPT 19 U/L (12-78); AST/SGOT 23 U/L (15-37); BLOOD UREA NITROGEN 22 mg/dl (7-18); CALCIUM 8.3 mg/dl (8.5-10.1); CARBON DIOXIDE 23 mmol/L (21-32); CHOLESTEROL 227 mg/dl (0-200); CREATININE 1.06 mg/dl (0.60-1.40); GLUCOSE 82 mg/dl (70-99); LDL CHOLESTEROL CALCULATED 146 mg/dl; POTASSIUM 4.1 mmol/L (3.5-5.1); SODIUM 143 mmol/L (136-145); TOTAL PROTEIN 7.1 gm/dl (6.4-8.2)
== END | disposition home or self-care (01) ==
LOC: C.LABSPEC 12:52
PROVIDERS: ATTEND Family Medicine
DX: Z00.00 Encounter for general adult medical examination without abnormal findings (principal); E78.2 Mixed hyperlipidemia; Z12.5 Encounter for screening for malignant neoplasm of prostate